=== PATIENT | female | born 1985 | race Caucasian/White ===

== ENCOUNTER 2018-01-13 17:10 | Emergency (ER) | payer OTHER ==
--- NOTE | 2018-01-13 17:27 | PDOC ---
Rapid Medical Evaluation Time Seen by Provider: 01/13/18 17:23 Medical Evaluation: 01/13/18 17:23 I have performed a brief in-person evaluation of this patient. The patient presents with a chief complaint of: pruritic rash x 1 month Pertinent physical exam findings:no obvious rash on exam I have ordered the following:nothing The patient will proceed to the ED for further evaluation. Discharge Disposition - Diagnosis Generalized pruritus - Referrals - Patient Instructions - Post Discharge Activity
[2018-01-13 17:36] VITALS: BP 110/47; PULSE 60; TEMP 98.5; BMI 25.5
[2018-01-13] MEDS ORDERED: DEXAMETHASONE 4 MG TABLET (FP) PO ONE (18:55)
[2018-01-13] MEDS ORDERED: hydrOXYzine HCL 25 MG TABLET (FP) PO ONE ×2 (18:55→19:02)
--- NOTE | 2018-01-13 18:55 | PDOC ---
History of Present Illness - General Chief Complaint: Rash Stated Complaint: RASH Time Seen by Provider: 01/13/18 17:23 History Source: Patient Exam Limitations: No Limitations - History of Present Illness Initial Comments: 01/13/18 18:54 HISTORY OF PRESENT ILLNESS: 32-year-old woman presents emergency Department with pruritic rash to her trunk for the past 6 days. Mother states her 2 children have had a rash one for 24 hours the other for one month. The older child whose had the rash for a month has been seen by ice carver was given Bactroban for her rash. The rash of her 2 children is different than this patient's rash. She denies any change in soaps, shampoos, conditioners, lotions , laundry detergents, fabric softeners foods or medications. Patient states she' s been taking Benadryl and is been given "multiple injections" for her rash. No recent travel or sick contacts. PAST MEDICAL HISTORY: Denies past medical history SURGICAL HISTORY: Denies ALLERGIES: No known drug allergies REVIEW OF SYSTEMS General/Constitutional: Denies fever or chills. Denies weakness, weight change. HEENT: Denies change in vision. Denies ear pain or discharge. Denies sore throat. Cardiovascular: Denies chest pain or shortness of breath. Respiratory: Denies cough, wheezing, or hemoptysis. Gastrointestinal: Denies nausea, vomiting, diarrhea or constipation. Denies rectal bleeding. Genitourinary: Denies dysuria, frequency, or change in urination. Musculoskeletal: Denies joint or muscle swelling or pain. Denies neck or back pain. Skin and breasts: Erythematous raised rash to trunk. Neurologic: Denies headache, vertigo, loss of consciousness, or loss of sensation. Psychiatric: Denies depression or anxiety. Endocrine: Denies increased thirst. Denies abnormal weight change. Hematologic/Lymphatic: Denies anemia, easy bleeding, or history of blood clots. Allergic/Immunologic: Denies hives or skin allergy. Denies latex allergy. PHYSICAL EXAM General Appearance: Well-appearing, appropriately dressed. No apparent distress , no intoxication. HEENT: EOMI, PERRLA, normal ENT inspection, normal voice, TMs normal, pharynx normal. No conjunctival pallor. No photophobia, scleral icterus. Neck: Supple. Trachea midline. No tenderness, rigidity, carotid bruit, stridor , lymphadenopathy, or thyromegaly. Respiratory/Chest: Lungs CTAB. No shortness of breath, chest tenderness, respiratory distress, accessory muscle use. No crackles, rales, rhonchi, stridor , wheezing, dullness Musculoskeletal/Extremities: Normal inspection. FROM of all extremities, normal capillary refill. Pelvis Stable. No CVA tenderness. No tenderness to extremities, pedal edema, swelling, erythema or deformity. Integumentary: Pruritic erythematous linear rash noted to lower back and abdomen. Past History - Past Medical History Allergies/Adverse Reactions: Allergies Allergy/AdvReac Type Severity Reaction Status Date / Time No Known Allergies Allergy Verified 01/13/18 17:25 Home Medications: Ambulatory Orders NK [No Known Home Medication] 01/13/18 COPD: No - Immunization History Immunization Up to Date: Yes - Suicide/Smoking/Psychosocial Hx Smoking History: Never smoked Hx Alcohol Use: No Drug/Substance Use Hx: No *Physical Exam - Vital Signs Last Vital Signs Temp Pulse Resp BP Pulse Ox 98.5 F 60 18 110/47 L 100 01/13/18 17:25 01/13/18 17:25 01/13/18 17:25 01/13/18 17:25 01/13/18 17:25 Moderate Sedation - Procedure Monitoring Vital Signs: Procedure Monitoring Vital Signs Temperature 98.5 F 01/13/18 17:25 Pulse Rate 60 01/13/18 17:25 Respiratory Rate 18 01/13/18 17:25 Blood Pressure 110/47 L 01/13/18 17:25 O2 Sat by Pulse Oximetry (%) 100 01/13/18 17:25 Medical Decision Making - Medical Decision Making 01/13/18 20:42 A/P: 32-year-old woman without medical history with pruritic rash to trunk for the past 6 days. Oropharynx within normal limits Lungs clear to auscultation bilaterally Generalized pruritic erythematous macular rash present to patient's trunk No lesions noted to the hands or feet or oropharynx Speaking full sentences No stridor Atarax, Decadron, dermatology follow-up *DC/Admit/Observation/Transfer Diagnosis at time of Disposition: Generalized pruritus - Discharge Dispostion Disposition: HOME Condition at time of disposition: Stable Decision to Admit order: No - Referrals Referrals: ON STAFF,NOT [Primary Care Provider] - Zuleyka Banerjee MD [Staff Physician] - - Patient Instructions Additional Instructions: Rest, keep cool and dry- avoid strenuous activity or hot /humid environments Less hot showers, no abrasive soaps May use heavy creams like Eucerin or Cetaphil to keep skin moist May apply Aveeno, calamine lotion, [id number] hydrocortisone creams as needed for symptoms May use Benadryl at night for antihistamine, Zyrtec/ Tia or Claritin for daytime antihistamine use to help with itching May use [id number] hydrocortisone cream on all areas except face Try to identify cause for rash and avoid exposures Followup with PMD in one week if no resolution Make appointment with ice carver for evaluation when possible - Post Discharge Activity
[2018-01-13] MEDS ORDERED: DEXAMETHASONE 4 MG TABLET (FP) ONE (19:02)
== END 2018-01-13 20:50 | disposition home or self-care (01) ==
LOC: JER 17:10
DX: L29.8 Other pruritus (principal)
CPT/HCPCS: 99281-25

== ENCOUNTER 2022-02-24 22:46 | Emergency (ER) | payer OTHER ==
[2022-02-24 23:04] VITALS: BP 104/67; PULSE 77; RESP 18; BMI 28.7
[2022-02-24 23:05] VITALS: TEMP 97.6
[2022-02-25] MEDS ORDERED: MAG HYDROX/AL HYDROX/SIMETH -MYLANTA- ORAL SUSPENSION PO ONE (00:36)
[2022-02-25] MEDS ORDERED: ACETAMINOPHEN 1000 MG/100 ML BAG IVPB ONE (00:36)
[2022-02-25] MEDS ORDERED: LACTATED RINGERS SOLUTION 1000 ML INFUS.BAG IV ONE (00:36)
[2022-02-25] MEDS ORDERED: SUCRALFATE 1 GM TABLET (FP) PO ONE (00:36)
[2022-02-25] MEDS ORDERED: FAMOTIDINE 20 MG/50 ML IVPB 20 MG/50 ML MG IVPB ONE ×2 (00:36→01:10)
[2022-02-25] MEDS ORDERED: ONDANSETRON 4 MG/2 ML VIAL IVPUSH ONE (00:36)
[2022-02-25] MEDS ORDERED: ACETAMINOPHEN INJECTION 100 ML IVPB ONE (00:39)
[2022-02-25] MEDS ORDERED: ONDANSETRON 4 MG/2 ML VIAL ONE (00:40)
[2022-02-25] MEDS ORDERED: MAG HYDROX/AL HYDROX/SIMETH 30 ML UNIT-DOSE CUP ONE (00:59)
[2022-02-25] MEDS ORDERED: SUCRALFATE 1 GM TABLET (FP) ONE (00:59)
[2022-02-25 01:10] LABS: BASO % 0.4 % (0-2.0); EOS % 0.8 % (0-4.5); HEMATOCRIT 40.8 % (32.4-45.2); HEMOGLOBIN 13.4 GM/dL (10.7-15.3); LYMPH % 15.3 % (8-40); MCH 30.3 pg (25.7-33.7); MCHC 32.9 g/dl (32.0-36.0); MEAN CELL VOLUME 92.1 fl (80-96); MEAN PLT VOLUME 8.7 fl (7.5-11.1); MONO % 4.9 % (3.8-10.2); NEUT % 78.6 % (42.8-82.8); PLATELET COUNT 299 10^3/uL (134-434); RBC 4.43 M/mm3 (3.60-5.2); WHITE BLOOD COUNT 11.7 K/mm3 (4.0-10.0)
[2022-02-25 01:33] LABS: CALCIUM 9.4 mg/dL (8.5-10.1)
[2022-02-25 01:34] LABS: ALBUMIN 4.1 g/dl (3.4-5.0); BLOOD UREA NITROGEN 13.2 mg/dL (7-18)
[2022-02-25 01:37] LABS: CREATININE 0.6 mg/dL (0.55-1.3)
[2022-02-25 01:38] LABS: TOT PROT 7.8 g/dl (6.4-8.2)
[2022-02-25 01:39] LABS: BILIRUBIN,TOTAL 0.4 mg/dL (0.2-1)
[2022-02-25 02:03] LABS: PH,URINE 5.5 (5.0-8.0); URINE APPEARANCE CLEAR; URINE BILIRUBIN NEGATIVE (NEGATIVE); URINE COLOR YELLOW; URINE GLUCOSE (UA) NEGATIVE (NEGATIVE); URINE KETONE 1+ (NEGATIVE); URINE LEUK ESTERASE NEGATIVE (NEGATIVE); URINE NITRITE NEGATIVE (NEGATIVE); URINE PROTEIN NEGATIVE (NEGATIVE); URINE UROBILINOGEN 0.2 mg/dL (0.2-1.0)
[2022-02-25 02:06] LABS: HCG,QUALITATIVE URINE Negative
== END 2022-02-25 03:06 | disposition home or self-care (01) ==
LOC: JER 22:46
PROC: 3E033GC Introduction of Other Therapeutic Substance into Peripheral Vein, Percutaneous Approach (ICD-10-PCS; principal; 2022-02-24)
DX: R11.2 Nausea with vomiting, unspecified (principal); R19.7 Diarrhea, unspecified
CPT/HCPCS: 0241U-QW; 36415; 80053; 81003; 83690; 84703; 85025; 87086; 99284-25